=== PATIENT | female | born 1955 | race American Indian/Alaskan Native ===

== ENCOUNTER 2016-11-06 09:00 | Inpatient (IN) | payer OTHER ==
[2016-11-06] MEDS ORDERED: KETOROLAC TROMETHAMINE 30 MG/1 ML VIAL IVPUSH ONE (09:29)
[2016-11-06] MEDS ORDERED: SODIUM CHLORIDE 1,000 ML IV STA ×2 (09:29→12:19)
[2016-11-06] MEDS ORDERED: morphine CARPU-JECT 4 MG/1 ML DISP.SYRIN IVPUSH ONE (09:29)
[2016-11-06] MEDS ORDERED: morphine CARPU-JECT 4 MG/1 ML DISP.SYRIN ONE (09:45)
[2016-11-06] MEDS ORDERED: KETOROLAC TROMETHAMINE 30 MG/1 ML VIAL ONE (09:46)
[2016-11-06 09:50] LABS: BASOPHIL 0.6 % (0-2.0); EOSINOPHIL 2.9 % (0-4.5); MCHC 32.8 g/dl (32.0-36.0); MEAN CELL VOLUME 85.4 fl (80-96); MEAN PLT VOLUME 7.1 fl (7.5-11.1); NEUTROPHILS 67.7 % (42.8-82.8); PLATELET COUNT 191 K/MM3 (134-434); RDW 15.8 % (11.6-15.6); WHITE BLOOD COUNT 5.6 K/mm3 (4.0-10.0)
[2016-11-06] MEDS ORDERED: ONDANSETRON 4 MG/2 ML VIAL ONE (09:54)
--- NOTE | 2016-11-06 10:09 | PDOC ---
History of Present Illness - General History Source: Patient, Old Records, Primary Care Provider Exam Limitations: No Limitations - History of Present Illness Initial Comments: 11/06/16 10:11 The patient is a 61 year old female with past medical history of HIV, with CD4 count 664, viral load <20 with 100% adherence to Atripla who presents to the ED with the complaints of three days of bilateral flank pain, left greater than right. She rates the pain 10/10 in severity and radiates toward her umbilicus. She reports nausea but denies vomiting. She denies any modifying factors. The patient had an Abdomen/CT scan on 10/05/16 which showed a staghorn calculus in the upper pole of right kidney, 2.2 x 1.5 x 2.3 cm in size as well as several calculi in the left ureter, with the largest of 7 mm. The patient was scheduled for a lithotripsy on 11/08/16 however, she was unable to bare the pain until then. The patient denies any urinary symptoms. The patient denies any fever, chills, diarrhea, cough, shortness of breath, chest pain. Surgical Hx: Tonsillectomy, Right lithotripsy (2012) Social Hx: Denies alcohol, tobacco, drug use. Allergies: Penicillin, sulfamethoxazole PCP: Zuleyka Casey Urologist: Jarrett Busby <Afsaneh Matt - Last Filed: 11/06/16 11:39> - General History Source: Patient Exam Limitations: No Limitations <Julianne Teixeira - Last Filed: 11/06/16 11:59> - General Chief Complaint: Pain, Acute Stated Complaint: LT SIDE PAIN Time Seen by Provider: 11/06/16 09:20 Past History <Afsaneh Matt - Last Filed: 11/06/16 11:39> - Past Medical History Anemia: No Asthma: No Cancer: No Cardiac Disorders: No CVA: Yes (x 2 - 07/16/2004, 08/30/2004) COPD: No CHF: No Dementia: No Diabetes: No (BORDERLINE) GI Disorders: No Disorders: No HTN: No Hypercholesterolemia: No Kidney Stones: Yes Liver Disease: No Seizures: No Thyroid Disease: No Other medical history: PHLEBITIS - Surgical History Abdominal Surgery: No Appendectomy: No Cardiac Surgery: No Cholecystectomy: No Lung Surgery: No Neurologic Surgery: No Orthopedic Surgery: Yes (WRIST SX - RIGHT) - Psycho/Social/Smoking Cessation Hx Anxiety: No Suicidal Ideation: No Smoking History: Never smoked Have you smoked in the past 12 months: No Number of Cigarettes Smoked Daily: 0 If you are a former smoker, when did you quit?: 1993 Cigars Per Day: 0 Hx Alcohol Use: No Drug/Substance Use Hx: No Substance Use Type: None Hx Substance Use Treatment: No <Julianne Teixeira - Last Filed: 11/06/16 11:59> - Past Medical History Allergies/Adverse Reactions: Allergies Allergy/AdvReac Type Severity Reaction Status Date / Time Penicillins Allergy Severe tongue Verified 11/06/16 09:04 swelling, sob sulfamethoxazole Allergy Intermediate rash, Verified 11/06/16 09:04 [From Bactrim] itching trimethoprim [From Bactrim] Allergy Intermediate rash, Verified 11/06/16 09:04 itching Home Medications: Ambulatory Orders Cyclobenzaprine HCl [Flexeril -] 10 mg PO HS PRN #30 tablet 04/15/16 Aspirin [Aspirin EC] 81 mg PO DAILY #30 tablet. 09/02/16 Cyclobenzaprine HCl [Flexeril 10 mg] 10 mg PO HS PRN #30 tablet 09/02/16 Efavirenz/Emtricitab/Tenofovir [Atripla Tablet -] 1 tab PO DAILY #30 tab Gabapentin [Neurontin] 600 mg PO BID #60 tablet 09/02/16 Guaifenesin Dm [Robitussin Dm -] 10 ml PO Q8H PRN #1 bottle 09/02/16 Multivitamins [Multivit ([facility] Formul[facility])] 1 tab PO DAILY #30 tab 09/02/16 Hydrochlorothiazide [Hctz -] 12.5 mg PO DAILY #30 cap 09/30/16 Ranitidine HCl [Zantac] 150 mg PO DAILY #30 tablet 10/06/16 Review of Systems - Review of Systems Able to Perform ROS?: Yes Comments:: 11/06/16 10:12 GENERAL/CONSTITUTIONAL: No fever or chills. No weakness. HEAD, EYES, EARS, NOSE AND THROAT: No change in vision. No ear pain or discharge. No sore throat. CARDIOVASCULAR: No chest pain or shortness of breath. RESPIRATORY: No cough, wheezing, or hemoptysis. GASTROINTESTINAL: Present: nausea No vomiting, diarrhea or constipation. GENITOURINARY: Present: bilateral flank pain No dysuria, frequency, or change in urination. MUSCULOSKELETAL: No joint or muscle swelling or pain. No neck or back pain. SKIN: No rash NEUROLOGIC: No headache, vertigo, loss of consciousness, or change in strength/ sensation. ENDOCRINE: No increased thirst. No abnormal weight change. HEMATOLOGIC/LYMPHATIC: No anemia, easy bleeding, or history of blood clots. ALLERGIC/IMMUNOLOGIC: No hives or skin allergy. All Other Systems: Reviewed and Negative <VernellAfsaneh - Last Filed: 11/06/16 11:39> *Physical Exam - Vital Signs Last Vital Signs Temp Pulse Resp BP Pulse Ox 97.8 F 96 H 20 157/92 98 11/06/16 09:01 11/06/16 09:01 11/06/16 09:01 11/06/16 09:01 11/06/16 09:01 - Physical Exam Comments: 11/06/16 10:13 GENERAL: Awake, alert, and fully oriented, in no acute distress HEAD: No signs of trauma EYES: PERRLA, EOMI, sclera anicteric, conjunctiva clear ENT: Auricles normal inspection, hearing grossly normal, nares patent, oropharynx clear without exudates. Moist mucosa NECK: Normal ROM, supple, no lymphadenopathy, JVD, or masses LUNGS: Breath sounds equal, clear to auscultation bilaterally. No wheezes, and no crackles HEART: Regular rate and rhythm, normal S1 and S2, no murmurs, rubs or gallops ABDOMEN: Left CVA tenderness, Soft, normoactive bowel sounds. No guarding, no rebound. No masses EXTREMITIES: Normal range of motion, no edema. No clubbing or cyanosis. No cords, erythema, or tenderness NEUROLOGICAL: Cranial nerves II through XII grossly intact. Normal speech, normal gait SKIN: Warm, Dry, normal turgor, no rashes or lesions noted. <Afsaneh Matt - Last Filed: 11/06/16 11:39> - Vital Signs Last Vital Signs Temp Pulse Resp BP Pulse Ox 97.8 F 96 H 20 157/92 98 11/06/16 09:01 11/06/16 09:01 11/06/16 09:01 11/06/16 09:01 11/06/16 09:01 <Julianne Teixeira - Last Filed: 11/06/16 11:59> ED Treatment Course - LABORATORY CBC & Chemistry Diagram: 11/06/16 09:40 11/06/16 09:40 - ADDITIONAL ORDERS Additional order review: 11/06/16 09:40 RBC 4.98 MCV 85.4 MCHC 32.8 RDW 15.8 H MPV 7.1 L Neutrophils % 67.7 Lymphocytes % 21.6 D Monocytes % 7.2 Eosinophils % 2.9 Basophils % 0.6 - Medications Given in the ED: ED Medications Discontinued Medications Generic Name Dose Route Start Last Admin Trade Name Freq PRN Reason Stop Dose Admin Ketorolac Tromethamine 30 mg 11/06/16 09:29 11/06/16 09:40 Toradol Injection - IVPUSH 11/06/16 09:30 30 mg ONCE ONE Administration Morphine Sulfate 4 mg 11/06/16 09:29 11/06/16 09:40 Morphine Injection - IVPUSH 11/06/16 09:30 4 mg ONCE ONE Administration <Afsaneh Matt - Last Filed: 11/06/16 11:39> - LABORATORY CBC & Chemistry Diagram: 11/06/16 09:40 11/06/16 09:40 - ADDITIONAL ORDERS Additional order review: 11/06/16 09:40 RBC 4.98 MCV 85.4 MCHC 32.8 RDW 15.8 H MPV 7.1 L Neutrophils % 67.7 Lymphocytes % 21.6 D Monocytes % 7.2 Eosinophils % 2.9 Basophils % 0.6 - Medications Given in the ED: ED Medications Discontinued Medications Generic Name Dose Route Start Last Admin Trade Name Freq PRN Reason Stop Dose Admin Ketorolac Tromethamine 30 mg 11/06/16 09:29 11/06/16 09:40 Toradol Injection - IVPUSH 11/06/16 09:30 30 mg ONCE ONE Administration Morphine Sulfate 4 mg 11/06/16 09:29 11/06/16 09:40 Morphine Injection - IVPUSH 11/06/16 09:30 4 mg ONCE ONE Administration <Julianne Teixeira - Last Filed: 11/06/16 11:59> Medical Decision Making - Medical Decision Making 11/06/16 10:14 Phone call placed to Dr. Busby at 09:30 at . Call returned within 10 minutes. Case was discussed. <Afsaneh Matt - Last Filed: 11/06/16 11:39> - Medical Decision Making 11/06/16 10:07 A portion of this note was documented by scribe services under my direction. I have reviewed the details of the note, within reason, and agree with the documentation with the following case summary and management plan written by me. Nursing documentation reviewed and incorporated into medical decision making 11/06/16 11:54 Laboratory Tests 11/06/16 11/06/16 09:40 09:40 WBC 5.6 Hgb 14.0 Hct 42.6 Plt Count 191 Neutrophils % 67.7 Lymphocytes % 21.6 D BUN 15 Creatinine 1.1 H Case reviewed with Dr Quigley Pt is on schedule for TuesdayNovember 08 Pt needs medical clearance Case reviewed with Dr. Gordon <Julianne Teixeira - Last Filed: 11/06/16 11:59> *DC/Admit/Observation/Transfer - Attestations Scribe Attestion: 11/06/16 10:14 Documentation prepared by Afsaneh Matt, acting as chief medical officer for Julianne Teixeira MD. <Afsaneh Matt - Last Filed: 11/06/16 11:39> - Discharge Dispostion Admit: Yes <Julianne Teixeira - Last Filed: 11/06/16 11:59> Diagnosis at time of Disposition: Renal calculi - Discharge Dispostion Condition at time of disposition: Stable - Referrals Referrals: Zuleyka Casey MD [Primary Care Provider] -
[2016-11-06 10:12] LABS: ALBUMIN 3.7 g/dl (3.4-5.0); ALK PHOS 163 U/L (45-117); ANION GAP 8 (8-16); BILIRUBIN,TOTAL 0.3 mg/dL (0.2-1.0); CALCIUM 8.7 mg/dL (8.5-10.1); CO2 24 mmol/L (21-32); CREATININE 1.1 mg/dL (0.55-1.02); GLUCOSE,RANDOM 150 mg/dL (74-106); SGOT/AST 26 U/L (15-37); SGPT/ALT 32 U/L (12-78); TOT PROT 7.3 g/dl (6.4-8.2)
[2016-11-06 10:31] LABS: INR 1.01 (0.82-1.09); PROTHROMBIN TIME (PATIENT) 11.1 SEC (9.98-11.88)
[2016-11-06] MEDS ORDERED: ONDANSETRON 4 MG/2 ML VIAL IVPUSH ONE (10:48)
--- NOTE | 2016-11-06 11:19 | HP ---
CHIEF COMPLAINT: left flank and lower abdominal pain PCP: dr. ramos HISTORY OF PRESENT ILLNESS: 61 yr old woman with a hx of HIV, CVA, pre-diabetes, hx of nephrolithiasis and staghorn calculi presents with intractable left flank pain since night. starts in the left flank and radiates to her lower abdomen and umbilicus , constant 6/10 with intermittent worsening to 10/10. She tried tylenol at home which did not help the pain. a/w diarrhea (3 episodes of loose watery nonbloody bm's yesterday). denies fevers, headache, chest pain, palpitations, shortness of breath, hematuria, vomiting ER course was notable for: (1) IVF (2) pain control (3) u/a Recent Travel:none PAST MEDICAL HISTORY: HIV - compliant with medications, follows routinely with dr. Ramos, undetectable viral load for 20yrs CD4 count [address] [facility] documentation 09/2016 CVA x2 in 2004July 16, and August 30 - with no residual deficits PAST SURGICAL HISTORY: Social History: Smoking: started ge 12 stopped in 1991, smoked intermittently during these years Alcohol: social drinking in the past, quit completely about 10 yrs ago Drugs: never Family History: both sides of family with cancers, "of all types, including colon cancer" father diagnosed with pancreatic ca at age 60 - survived 10yrs. Allergies Penicillins Allergy (Severe, Verified 11/06/16 09:04) tongue swelling, sob sulfamethoxazole [From Bactrim] Allergy (Intermediate, Verified 11/06/16 09:04) rash, itching trimethoprim [From Bactrim] Allergy (Intermediate, Verified 11/06/16 09:04) rash, itching HOME MEDICATIONS: Home Medications Medication Instructions Recorded Cyclobenzaprine HCl [Flexeril -] 10 mg PO HS PRN #30 tablet 04/15/16 Aspirin [Aspirin EC] 81 mg PO DAILY #30 tablet. 09/02/16 Cyclobenzaprine HCl [Flexeril 10 10 mg PO HS PRN #30 tablet 09/02/16 mg] Efavirenz/Emtricitab/Tenofovir 1 tab PO DAILY #30 tab 09/02/16 [Atripla Tablet -] Gabapentin [Neurontin] 600 mg PO BID #60 tablet 09/02/16 Guaifenesin Dm [Robitussin Dm -] 10 ml PO Q8H PRN #1 bottle 09/02/16 Multivitamins [Multivit ([facility] 1 tab PO DAILY #30 tab 09/02/16 Formulary)] Hydrochlorothiazide [Hctz -] 12.5 mg PO DAILY #30 cap 09/30/16 Ranitidine HCl [Zantac] 150 mg PO DAILY #30 tablet 10/06/16 REVIEW OF SYSTEMS CONSTITUTIONAL: Absent: fever, chills, diaphoresis, generalized weakness, malaise, loss of appetite, weight change HEENT: Absent: rhinorrhea, nasal congestion, throat pain, throat swelling, difficulty swallowing, mouth swelling, ear pain, eye pain, visual changes CARDIOVASCULAR: Present: lower extremity edema Absent: chest pain, syncope, palpitations, irregular heart rate, lightheadedness , RESPIRATORY: Absent: cough, shortness of breath, dyspnea with exertion, orthopnea, wheezing, stridor, hemoptysis GASTROINTESTINAL: Present: abdominal pain, diarrhea Absent: abdominal distension, nausea, vomiting,constipation, melena, hematochezia GENITOURINARY: Present: feels like she is retaining occasionally. Absent: dysuria, frequency, urgency, hesitancy, hematuria, flank pain, genital pain MUSCULOSKELETAL: Absent: myalgia, arthralgia, joint swelling, back pain, neck pain SKIN: Absent: rash, itching, pallor HEMATOLOGIC/IMMUNOLOGIC: Absent: easy bleeding, easy bruising, lymphadenopathy, frequent infections ENDOCRINE: Absent: unexplained weight gain, unexplained weight loss, heat intolerance, cold intolerance NEUROLOGIC: Absent: headache, focal weakness or paresthesias, dizziness, unsteady gait, seizure, mental status changes, bladder or bowel incontinence PHYSICAL EXAMINATION Vital Signs - 24 hr 11/06/16 09:01 Temperature 97.8 F Pulse Rate 96 H Respiratory 20 Rate Blood Pressure 157/92 O2 Sat by Pulse 98 Oximetry (%) GENERAL: Awake, alert, and fully oriented, in no acute distress. HEAD: Normal with no signs of trauma. EYES: Pupils equal, round and reactive to light, extraocular movements intact, sclera anicteric, conjunctiva clear. No lid lag. EARS, NOSE, THROAT: normal TM's, nares patent, oropharynx clear without exudates. Moist mucous membranes. eduntulism NECK: Normal range of motion, supple without lymphadenopathy, without masses, thick neck LUNGS: Breath sounds equal, clear to auscultation bilaterally. No wheezes, and no crackles. No accessory muscle use. HEART: Regular rate and rhythm, normal S1 and S2 without murmur, rub or gallop. ABDOMEN: Soft, tender in left flank, left lower abdomen, obturator and psoas's negative, not distended, normoactive bowel sounds, no guarding, no rebound, MUSCULOSKELETAL: No bony deformities or tenderness. CVA tenderness Left>right UPPER EXTREMITIES: 2+ radial pulses, warm, well-perfused. No cyanosis. No clubbing. No peripheral edema. ttp in b/l shoulders at joint (chronic) without edema/erythema/skin intact. full rom at shoulder joint, flexion 4/5 b/l shoulder , 4/5 biceps and triceps. 3/5 in left hip extension, knee flexion limited by pain, 4/5 right hip extension, knee extension/flexion 4/5, dorsi/plantar flexion 5/5 bl sensation intact in arms/hands, legs and feet. LOWER EXTREMITIES: 2+ dorsalis pulses, warm, well-perfused. No calf tenderness. 1+ pitting edema left lower extremity from below knee to foot, trace edema in right lower leg below knee to ankle. NEUROLOGICAL: Cranial nerves II-XII intact. Normal speech. facial symmetry, PSYCHIATRIC: Cooperative. Good eye contact. Appropriate mood and affect. Laboratory Results - last 24 hr 11/06/16 11/06/16 11/06/16 09:40 09:40 09:40 WBC 5.6 RBC 4.98 Hgb 14.0 Hct 42.6 MCV 85.4 MCHC 32.8 RDW 15.8 H Plt Count 191 MPV 7.1 L Neutrophils % 67.7 Lymphocytes % 21.6 D Monocytes % 7.2 Eosinophils % 2.9 Basophils % 0.6 INR 1.01 Sodium 141 Potassium 4.0 Chloride 109 H Carbon Dioxide 24 Anion Gap 8 BUN 15 Creatinine 1.1 H Creat Clearance w eGFR 50.67 Random Glucose 150 H D Calcium 8.7 Total Bilirubin 0.3 D AST 26 ALT 32 Alkaline Phosphatase 163 H Total Protein 7.3 Albumin 3.7 Blood Type Antibody Screen 11/06/16 09:40 WBC RBC Hgb Hct MCV MCHC RDW Plt Count MPV Neutrophils % Lymphocytes % Monocytes % Eosinophils % Basophils % INR Sodium Potassium Chloride Carbon Dioxide Anion Gap BUN Creatinine Creat Clearance w eGFR Random Glucose Calcium Total Bilirubin AST ALT Alkaline Phosphatase Total Protein Albumin Blood Type O POSITIVE Antibody Screen Negative ASSESSMENT/PLAN: 61 yr old woman with hx of HIV, CVA and nephrolithasis admitted for intractable pain due to nephrolithiasis. - Medical optimization -- patient has a hx of CVA without current cardiac complaints and stable TWI inversions/left axis deviation/QTc pronlongation on EKG, she has Mets>4. She is at moderate risk for an elective low risk lithotripsy procedure. she does not require further cardiac work-up at this time. # nephrolithiasis - IVF NS @ 75ml/hr for 12 hours (limit on IVF due to LE edema) - flomax daily to promote passage of stones - no indication for abx as pt has not c.o of UTI, no bacteria in u/a - dr. Snowden is aware patient has been admitted, she has is on the schedule on the 3rd for lithotripsy - pain control with tylenol 650mg po q6hr, escalate to oxycodone if not relieved #HIV - continue Atripla daily #chronic pain in b/l lower legs - gabapentin 600mg po bid - flexiril 10mg po daily prn #ELISSA - stable for past 3 visits, though elevated from pt's baseline - likely due to obstructive uropathy from renal calculi, expect improvement with stone removal #hx of CVA - continue ASA 81mg daily Prediabetes - diet control: diabetic diet #DVT: heparin tid sq 5000units #activity as tolerated Visit type - Emergency Visit Emergency Visit: Yes ED Registration Date: 11/06/16 Care time: The patient presented to the Emergency Department on the above date and was hospitalized for further evaluation of their emergent condition. - New Patient This patient is new to me today: Yes Date on this admission: 11/06/16 - Critical Care Critical Care patient: No
[2016-11-06 11:53] LABS: URINE APPEARANCE CLEAR; URINE BILIRUBIN NEGATIVE (NEGATIVE); URINE COLOR YELLOW; URINE GLUCOSE (UA) NEGATIVE (NEGATIVE); URINE KETONE NEGATIVE (NEGATIVE); URINE NITRITE NEGATIVE (NEGATIVE); URINE UROBILINOGEN NEGATIVE E.U./dl (0.2-1.0)
[2016-11-06 11:55] LABS: URINE BLOOD 2+ (NEGATIVE); URINE LEUK ESTERASE TRACE (NEGATIVE); URINE PROTEIN 1+ (NEGATIVE)
[2016-11-06 11:58] LABS: URINE HYALINE CAST 1 /lpf; URINE RBC 28 /hpf (0-3); URINE WBC 7 /hpf (3-5)
[2016-11-06] MEDS ORDERED: SODIUM CHLORIDE 1,000 ML IV SCH ×2 (14:30→15:12)
--- NOTE | 2016-11-06 14:49 | EKG ---
Test Reason : Blood Pressure : / mmHG Vent. Rate : 077 BPM Atrial Rate : 077 BPM P-R Int : 142 ms QRS Dur : 072 ms QT Int : 440 ms P-R-T Axes : 032 -29 -08 degrees QTc Int : 497 ms NORMAL SINUS RHYTHM PROLONGED QT ABNORMAL ECG WHEN COMPARED WITH ECG OF 23-MAR-2006 11:46, INVERTED T WAVES HAVE REPLACED NONSPECIFIC T WAVE ABNORMALITY IN INFERIOR LEADS Confirmed by CRISTOFER ACOSTA, JOSE DE JESUS ([id number]) on 11/06/2016 2:49:05 PM Referred By: Confirmed By:JOSE DE JESUS CLEVELAND MD
--- NOTE | 2016-11-06 14:50 | PN ---
Teaching Attending Note Name of Resident: Gutierrez Delarosa ATTENDING PHYSICIAN STATEMENT I saw and evaluated the patient. I reviewed the resident's note and discussed the case with the resident. I agree with the resident's findings and plan as documented. SUBJECTIVE: CC: L flank pain . HPI: 61 y/o lady with h/o HIV, nephrolithiasis , and CVA in 2004 who presented with L flank pain x 3 days she has known nephrolithiasis ( staghorn on R and obstructive L lower uretal calculus in L , seen o n CT from 10/05). she was scheduled fro lithotripsy on Tuesday but never got medical clearance . now has pain , no dysuria or fever . OBJECTIVE: NAD, MMM, no teeth , CV: RRR, no MRG, no JVD Lungs : CATB ext : 1+ pitting edema on LE . ABd : soft, TTP in LLQ and RLQ , no rebound tenderness or guarding . L CVA tenderness neuro : no facial droop, EOMI, round equal pupils . tongue at mid line . strength 5/5 in upper and lower ext proximally and distally EKG : NSR, L axis , TWI in II and AVF, seen before with long QTC ASSESSMENT AND PLAN: 61 y/o lady with h/o HIV, nephrolithiasis , and CVA in 2004 who presented with L flank pain x 3 days 1- Nephrolithiasis : with L Hydronephrosis and Hydroureter , known from 10/05. pain has increased . no signs fo UTI , clinically or on UA - gentle IVF till AM only - start flomax - consult Uro for procedure on Tuesday - Pre-Op risk stratification : this is an elective low risk procedure. the patient herself has no CP or SOB , or any signs of acute CHF or ACS, or arrhythmias. she is independent in her ADLS and IADLS , she is functional with METS of > 4 . She has h/o CVA though. all that puts her at mod risk fro cardiac complication withthis procedure . there is no indication for further cardiac w/ u - no need for abx 2- ELISSA : cr stable 1.1 . likely due to obstructive uropathy. give IVF carefully till am only then stop 3- HIV: cont meds 4- h/o Stroke : cont ASA HLOC
[2016-11-06] MEDS: ACETAMINOPHEN 325 MG TABLET (FP) PO PRN ×2 (15:27→23:08)
[2016-11-06 17:02] VITALS: BMI 43.3
[2016-11-06] MEDS: TAMSULOSIN HCL 0.4 MG CAP.ER.24H (FP) PO SCH (18:12)
[2016-11-06] MEDS: HEPARIN NA (PORCINE) 5,000 UNITS/ML 1ML VIAL SQ SCH (22:16)
[2016-11-06] MEDS: GABAPENTIN 300 MG CAPSULE (FP) PO SCH (22:16)
[2016-11-07] MEDS ORDERED: HYDROmorphone HCL CARPU-JECT 1 MG/1 ML DISP.SYRIN IVPUSH ONE (00:38)
[2016-11-07] MEDS ORDERED: morphine CARPU-JECT 2 MG/1 ML DISP.SYRIN IVPUSH ONE ×3 (05:27→23:09)
[2016-11-07] MEDS: HEPARIN NA (PORCINE) 5,000 UNITS/ML 1ML VIAL SQ SCH ×3 (06:07→21:29)
[2016-11-07] MEDS ORDERED: KETOROLAC TROMETHAMINE 30 MG/1 ML VIAL IVPUSH ONE (06:49)
[2016-11-07 07:36] LABS: BASOPHIL 0.8 % (0-2.0); EOSINOPHIL 3.9 % (0-4.5); MCH 28.2 pg (25.7-33.7); MEAN CELL VOLUME 85.4 fl (80-96); MEAN PLT VOLUME 7.4 fl (7.5-11.1); NEUTROPHILS 56.8 % (42.8-82.8); PLATELET COUNT 186 K/MM3 (134-434); RDW 15.6 % (11.6-15.6)
--- NOTE | 2016-11-07 08:16 | PN ---
Progress Note (short form) - Note Progress Note: Subjective: no fever or chills, still has pain in L flank . no N/V Objective: Vital Signs: Last Vital Signs Temp Pulse Resp BP Pulse Ox 97.8 F 89 20 139/81 96 11/07/16 06:00 11/07/16 06:00 11/07/16 06:00 11/07/16 06:00 11/07/16 03:00 Laboratory Results - last 24 hr 11/06/16 11/06/16 11/06/16 09:40 09:40 09:40 WBC 5.6 RBC 4.98 Hgb 14.0 Hct 42.6 MCV 85.4 MCHC 32.8 RDW 15.8 H Plt Count 191 MPV 7.1 L Neutrophils % 67.7 Lymphocytes % 21.6 D Monocytes % 7.2 Eosinophils % 2.9 Basophils % 0.6 INR 1.01 Sodium 141 Potassium 4.0 Chloride 109 H Carbon Dioxide 24 Anion Gap 8 BUN 15 Creatinine 1.1 H Creat Clearance w eGFR 50.67 Random Glucose 150 H D Calcium 8.7 Total Bilirubin 0.3 D AST 26 ALT 32 Alkaline Phosphatase 163 H Total Protein 7.3 Albumin 3.7 Urine Color Urine Appearance Urine pH Ur Specific [place] Urine Protein Urine Glucose (UA) Urine Ketones Urine Blood Urine Nitrite Urine Bilirubin Urine Urobilinogen Ur Leukocyte Esterase Urine RBC Urine WBC Ur Epithelial Cells Hyaline Casts Blood Type Antibody Screen 11/06/16 11/06/16 11/07/16 09:40 11:30 06:00 WBC 4.0 RBC 4.36 Hgb 12.3 D Hct 37.2 MCV 85.4 MCHC 33.0 RDW 15.6 Plt Count 186 MPV 7.4 L Neutrophils % 56.8 Lymphocytes % 29.9 D Monocytes % 8.6 Eosinophils % 3.9 Basophils % 0.8 INR Sodium Potassium Chloride Carbon Dioxide Anion Gap BUN Creatinine Creat Clearance w eGFR Random Glucose Calcium Total Bilirubin AST ALT Alkaline Phosphatase Total Protein Albumin Urine Color Yellow Urine Appearance Clear Urine pH 5.0 Ur Specific [place] 1.025 Urine Protein 1+ H Urine Glucose (UA) Negative Urine Ketones Negative Urine Blood 2+ H Urine Nitrite Negative Urine Bilirubin Negative Urine Urobilinogen Negative Ur Leukocyte Esterase Trace H Urine RBC 28 Urine WBC 7 Ur Epithelial Cells Rare Hyaline Casts 1 Blood Type O POSITIVE Antibody Screen Negative Physical Exam: NAD, MMM, no teeth. CV: RRR, no MRG, no JVD Lungs : CATB ext : 1+ pitting edema on LE . ABd : soft, TTP in LLQ and RLQ , no rebound tenderness or guarding . L CVA tenderness ASSESSMENT AND PLAN: 61 y/o lady with h/o HIV, nephrolithiasis , and CVA in 2004 who presented with L flank pain x 3 days 1- Nephrolithiasis : with L Hydronephrosis and Hydroureter , known from 10/05. pain has increased . no signs of UTI , clinically or on UA - cont hydration today - flomax - Uro for procedure on Tuesday - Pre-Op risk stratification : this is an elective low risk procedure. the patient herself has no CP or SOB , or any signs of acute CHF or ACS, or arrhythmias. she is independent in her ADLS and IADLS , she is functional with METS of > 4 . She has h/o CVA though. all that puts her at mod risk fro cardiac complication with this procedure . there is no indication for further cardiac w /u 2- ELISSA : cr stable 1.1 . likely due to obstructive uropathy. IVF 3- HIV: cont meds 4- h/o Stroke : cont ASA HLOC Visit type - Emergency Visit Emergency Visit: Yes ED Registration Date: 11/06/16 Care time: The patient presented to the Emergency Department on the above date and was hospitalized for further evaluation of their emergent condition. - New Patient This patient is new to me today: No - Critical Care Critical Care patient: No
[2016-11-07 08:25] LABS: ANION GAP 7 (8-16); CALCIUM 8.2 mg/dL (8.5-10.1); CO2 26 mmol/L (21-32); CREATININE 1.2 mg/dL (0.55-1.02); GLUCOSE,RANDOM 138 mg/dL (74-106)
[2016-11-07] MEDS: GABAPENTIN 300 MG CAPSULE (FP) PO SCH ×3 (08:44→21:29)
[2016-11-07] MEDS: CYCLOBENZAPRINE HCL 10 MG TABLET (FP) PO PRN ×2 (08:44→18:39)
[2016-11-07] MEDS: ASPIRIN COATED 81 MG TABLET.EC PO SCH ×2 (08:45→15:55)
[2016-11-07] MEDS: TAMSULOSIN HCL 0.4 MG CAP.ER.24H (FP) PO SCH (08:45)
[2016-11-07] MEDS: MULTIVITAMINS (DAILY MVI) TABLET (FP) PO SCH ×2 (08:45→15:56)
--- NOTE | 2016-11-07 09:25 | PN ---
Progress Note (short form) - Note Progress Note: patient previously scheduled as outpatient for laser lithotripsy for 08 November 2016. will plan for procedure if medically cleared.
[2016-11-07] MEDS ORDERED: EFAVIRENZ 600 MG TABLET PO SCH ×3 (10:00→20:00)
[2016-11-07] MEDS ORDERED: PATIENT'S OWN MEDICATION (NON-FORMULARY) (Efavirenz/Emtricitab/Tenofovir 1 TAB) PO SCH (10:00)
[2016-11-07] MEDS ORDERED: EMTRICITABINE 200MG/TENOFOVIR 300MG PO SCH ×3 (10:00→20:00)
[2016-11-07] MEDS ORDERED: ENOXAPARIN NA (PORCINE) 40 MG/0.4 ML DISP.SYRIN SQ SCH (10:00)
[2016-11-07] MEDS: SODIUM CHLORIDE 1,000 ML IV SCH (17:22)
[2016-11-07] MEDS ORDERED: PT OWN MED DRAWER 7, Y5N ONE (20:22)
[2016-11-07] MEDS: ACETAMINOPHEN 325 MG TABLET (FP) PO PRN (21:08)
[2016-11-08] MEDS ORDERED: ceFAZolin SODIUM 1 GM VIAL IVPB ONE
[2016-11-08] MEDS: HEPARIN NA (PORCINE) 5,000 UNITS/ML 1ML VIAL SQ SCH ×3 (06:08→21:04)
[2016-11-08] MEDS ORDERED: morphine CARPU-JECT 2 MG/1 ML DISP.SYRIN IVPUSH ONE (06:09)
[2016-11-08 08:27] LABS: ANION GAP 5 (8-16); CALCIUM 8.3 mg/dL (8.5-10.1); CO2 28 mmol/L (21-32); CREATININE 1.3 mg/dL (0.55-1.02); GLUCOSE,RANDOM 111 mg/dL (74-106)
[2016-11-08] MEDS: MULTIVITAMINS (DAILY MVI) TABLET (FP) PO SCH (12:18)
[2016-11-08] MEDS: GABAPENTIN 300 MG CAPSULE (FP) PO SCH ×2 (12:18→21:04)
[2016-11-08] MEDS: ASPIRIN COATED 81 MG TABLET.EC PO SCH (12:18)
[2016-11-08] MEDS: TAMSULOSIN HCL 0.4 MG CAP.ER.24H (FP) PO SCH (12:18)
[2016-11-08] MEDS ORDERED: LEVOFLOXACIN 500 MG PREMIX BAG IVPB ONE (15:58)
[2016-11-08] MEDS ORDERED: IOHEXOL 300 MG/ML INFUS..BTL IV ONE (16:00)
[2016-11-08] MEDS ORDERED: PROMETHAZINE HCL 25 MG/1 ML VIAL IVPUSH PRN (17:04)
[2016-11-08] MEDS ORDERED: ONDANSETRON 4 MG/2 ML VIAL IVPUSH PRN (17:04)
--- NOTE | 2016-11-08 17:10 | CON.GU ---
Consult Consult Specialty:: urology Referred by:: medicine Reason for Consultation:: bilateral stone disease with left hydro - History of Present Illness Chief Complaint: left renal obstruction History of Present Illness: 61 year old female with obstructing left ureteral stones and hydro, and right renal calculi on CT scan - History Source History Provided By: Patient, Medical Record Limitations to Obtaining History: No Limitations - Past Medical History Renal/: Yes: Renal Calculi ...: No - Alcohol/Substance Use Hx Alcohol Use: No - Smoking History Smoking history: Never smoked Have you smoked in the past 12 months: No Aproximately how many cigarettes per day: 0 If you are a former smoker, when did you quit?: 1993 Home Medications - Allergies Allergies/Adverse Reactions: Allergies Allergy/AdvReac Type Severity Reaction Status Date / Time Penicillins Allergy Severe tongue Verified 11/06/16 09:04 swelling, sob sulfamethoxazole Allergy Intermediate rash, Verified 11/06/16 09:04 [From Bactrim] itching trimethoprim [From Bactrim] Allergy Intermediate rash, Verified 11/06/16 09:04 itching - Home Medications Home Medications: Ambulatory Orders Aspirin [Aspirin EC] 81 mg PO DAILY #30 tablet. 09/02/16 Cyclobenzaprine HCl [Flexeril 10 mg] 10 mg PO HS PRN #30 tablet 09/02/16 Efavirenz/Emtricitab/Tenofovir [Atripla Tablet -] 1 tab PO DAILY #30 tab Gabapentin [Neurontin] 600 mg PO BID #60 tablet 09/02/16 Guaifenesin Dm [Robitussin Dm -] 10 ml PO Q8H PRN #1 bottle 09/02/16 Multivitamins [Multivit ([facility] Formulary)] 1 tab PO DAILY #30 tab 09/02/16 Hydrochlorothiazide [Hctz -] 12.5 mg PO DAILY #30 cap 09/30/16 Ranitidine HCl [Zantac] 150 mg PO DAILY #30 tablet 10/06/16 Family Disease History - Family Disease History Family Disease History: Diabetes: Mother (ckd on dialysis), CA: Father (colon cancer), Other: Mother Review of Systems - Review of Systems Constitutional: denies: Chills, Fever Genitourinary: reports: Flank Pain Physical Exam- Vital Signs: Vital Signs Temperature 98.3 F 11/08/16 13:59 Pulse Rate 83 11/08/16 13:59 Respiratory Rate 20 11/08/16 13:59 Blood Pressure 127/79 11/08/16 10:00 O2 Sat by Pulse Oximetry (%) 96 11/08/16 09:00 Renal/: Yes: CVA Tenderness - Left. No: CVA Tenderness - Right, Wiley Present , Hematuria Labs: CBC, BMP 11/07/16 06:00 11/08/16 06:30 Imaging - Results Cat Scan: Report Reviewed, Image Reviewed Problem List - Problems (1) Renal calculi Assessment/Plan: bilatateral stones. for ureteroscopy Code(s): N20.0 - CALCULUS OF KIDNEY
[2016-11-08] MEDS ORDERED: LACTATED RINGERS SOLUTION 1,000 ML IV SCH (17:15)
[2016-11-08] MEDS ORDERED: ACETAMINOPHEN 325 MG TABLET (FP) PO PRN (17:27)
[2016-11-08] MEDS ORDERED: CYCLOBENZAPRINE HCL 10 MG TABLET (FP) PO PRN (17:27)
[2016-11-08] MEDS: LACTATED RINGERS SOLUTION 1,000 ML IV SCH ×2 (18:42→21:14)
--- NOTE | 2016-11-08 19:05 | PN ---
Teaching Attending Note Name of Resident: Anabel Monroy ATTENDING PHYSICIAN STATEMENT I saw and evaluated the patient. I reviewed the resident's note and discussed the case with the resident. I agree with the resident's findings and plan as documented. SUBJECTIVE: seen at 10 :30 am no fever or chills OBJECTIVE: NAD, MMM, no teeth. CV: RRR, no MRG, no JVD Lungs : CATB ext : 1+ pitting edema on LE . ABd : soft, TTP in LLQ and RLQ , no rebound tenderness or guarding . L CVA tenderness ASSESSMENT AND PLAN: 61 y/o lady with h/o HIV, nephrolithiasis , and CVA in 2004 who presented with L flank pain x 3 days 1- Nephrolithiasis : with L Hydronephrosis and Hydroureter -Lithotripsy today - cont hydration - flomax 2- ELISSA : cr stable 1.3. likely due to obstructive uropathy. IVF 3- HIV: cont meds 4- h/o Stroke : cont ASA possible dc tomorrow
--- NOTE | 2016-11-08 19:41 | PN ---
Physical Exam: SUBJECTIVE: Patient seen and examined at bedside. Patient complains of continued L CVA tenderness. Patient had requested morping 1mg IV 3 times last night. Otherwise patient does not complain of fever, chills, CP, SOB. Plan to go to Lithotripsy today. OBJECTIVE: Vital Signs Period Temp Pulse Resp BP Sys/Mcgee Pulse Ox Last 24 Hr 97.7 F-98.7 F 83-94 10-20 127-158/67-95 96-100 GENERAL: The patient is awake, alert, and fully oriented, in no acute distress. HEAD: Normal with no signs of trauma. EYES: PERRL, extraocular movements intact NECK: Trachea midline, full range of motion, supple. LUNGS: Breath sounds equal, clear to auscultation bilaterally, no wheezes, no crackles, no accessory muscle use. HEART: Regular rate and rhythm, S1, S2 without murmur, rub or gallop. ABDOMEN: Soft, nontender, nondistended, normoactive bowel sounds, no guarding, no rebound, L CVA tenderness present EXTREMITIES: 2+ pulses, warm, well-perfused, no edema. NEUROLOGICAL: Cranial nerves II through XII grossly intact. Normal speech, gait not observed. Patient has intact mental status, sensation equal bilaterally, muscles 5+, reflexes 2+ throughout Laboratory Results - last 24 hr 11/08/16 06:30 Sodium 142 Potassium 4.5 Chloride 109 H Carbon Dioxide 28 Anion Gap 5 L BUN 15 Creatinine 1.3 H Random Glucose 111 H Calcium 8.3 L Active Medications Generic Name Dose Route Start Last Admin Trade Name Freq PRN Reason Stop Dose Admin Acetaminophen 650 mg 11/08/16 17:27 Tylenol - PO Q6H PRN FEVER OR PAIN Aspirin 81 mg 11/09/16 10:00 Ecotrin - PO DAILY [facility] Cyclobenzaprine HCl 10 mg 11/08/16 17:27 Flexeril - PO HS PRN MUSCLE SPASMS Efavirenz 600 mg 11/08/16 20:00 Sustiva - PO DAILY@1999 [facility] Emtricitabine/Tenofovir 1 tab 11/08/16 20:00 Truvada PO DAILY@1999 [facility] Fentanyl 50 mcg 11/08/16 17:04 Sublimaze Injection - IVPUSH 11/11/16 17:05 [id number] PRN PAIN Gabapentin 600 mg 11/08/16 22:00 Neurontin - PO BID [facility] Heparin Sodium (Porcine) 5,000 unit 11/08/16 22:00 Heparin - SQ TID [facility] Lactated Ringer's 1,000 mls @ 125 mls/hr 11/08/16 17:15 11/08/16 18:42 Lactated Ringers Solution IV 125 mls/hr ASDIR [facility] Administration Morphine Sulfate 1 mg 11/08/16 17:06 Morphine Injection - IVPUSH Q4H PRN PAIN Multivitamins/Minerals/Vitamin C 1 tab 11/09/16 10:00 Tab-A-Vit - PO DAILY [facility] Ondansetron HCl 4 mg 11/08/16 17:04 Zofran Injection IVPUSH 11/08/16 23:05 Q6H PRN NAUSEA AND/OR VOMITING Promethazine HCl 12.5 mg 11/08/16 17:04 Phenergan Injection - IVPUSH 11/08/16 23:05 Q6H PRN NAUSEA Tamsulosin HCl 0.4 mg 11/09/16 08:30 Flomax - PO DAILY@0830 [facility] ASSESSMENT/PLAN: 61 yo F with history of HIV, B/L Nephrolithiasis, CVA, who presented with L flank pain for 3 days. Admitted for Nephrolithiasis with ELISSA 1. Nephrolithiasis - Patient has history of B/L nephrolithiasis (w/ L hydronephrosis, L hydroureter , R staghorn calculi) - Patient to get a Laser Lithotripsy today - Patient is on Lactated Ringers 125ml/hr - Continue Tamsulosin 0.4mg PO QD 2. ELISSA - Trend Cr, currently 1.3, stable - Likely due to obstructive uropathy 3. History of HIV - Continue home HAART 4. History of Stroke - Continue ASA 81mg PO QD 5. FEN - Fluids - Patient on LR 125mL/hr - Electrolytes - F/u Cr post procedure - Nutrition - Regular Diet 6. DVT Prophylaxis - Heparin SQ 5,000 unites TID 7. Disposition - Possible discharge tomorrow if Cr is stable post procedure 8. Code Status - Patient is Full Code Visit type - Emergency Visit Emergency Visit: No - New Patient This patient is new to me today: No - Critical Care Critical Care patient: No - Discharge Referral Referred to [facility] Med P.C.: No
[2016-11-08] MEDS ORDERED: PT OWN MED DRAWER 7, Y5N ONE ×2 (20:00→20:13)
[2016-11-08] MEDS ORDERED: EFAVIRENZ 600 MG TABLET PO SCH (20:00)
[2016-11-08] MEDS ORDERED: EMTRICITABINE 200MG/TENOFOVIR 300MG PO SCH (20:00)
[2016-11-08] MEDS: morphine CARPU-JECT 2 MG/1 ML DISP.SYRIN IVPUSH PRN (21:15)
[2016-11-08] MEDS: SODIUM CHLORIDE 1,000 ML IV SCH (23:05)
[2016-11-09] MEDS: morphine CARPU-JECT 2 MG/1 ML DISP.SYRIN IVPUSH PRN (03:35)
[2016-11-09] MEDS: LACTATED RINGERS SOLUTION 1,000 ML IV SCH (05:59)
[2016-11-09] MEDS: HEPARIN NA (PORCINE) 5,000 UNITS/ML 1ML VIAL SQ SCH (05:59)
[2016-11-09 07:51] LABS: ANION GAP 8 (8-16); CALCIUM 8.5 mg/dL (8.5-10.1); CO2 26 mmol/L (21-32); GLUCOSE,RANDOM 116 mg/dL (74-106)
[2016-11-09 07:53] LABS: CREATININE 1.2 mg/dL (0.55-1.02)
[2016-11-09] MEDS ORDERED: TAMSULOSIN HCL 0.4 MG CAP.ER.24H (FP) PO SCH (08:30)
[2016-11-09] MEDS ORDERED: PT OWN MED DRAWER 7, Y5N ONE (08:33)
[2016-11-09] MEDS: GABAPENTIN 300 MG CAPSULE (FP) PO SCH (09:06)
--- NOTE | 2016-11-09 09:36 | PN ---
Progress Note, Physician Chief Complaint: Pt. pain controlled, no GA complaints. - Current Medication List Current Medications: Active Medications Acetaminophen (Tylenol -) 650 mg PO Q6H PRN PRN Reason: FEVER OR PAIN Aspirin (Ecotrin -) 81 mg PO DAILY [facility] Last Admin: 11/09/16 09:06 Dose: 81 mg Cyclobenzaprine HCl (Flexeril -) 10 mg PO HS PRN PRN Reason: MUSCLE SPASMS Efavirenz (Sustiva -) 600 mg PO DAILY@1999 [facility] Last Admin: 11/08/16 20:04 Dose: 600 mg Emtricitabine/Tenofovir (Truvada) 1 tab PO DAILY@1999 [facility] Last Admin: 11/08/16 20:04 Dose: 1 tab Fentanyl (Sublimaze Injection -) 50 mcg IVPUSH [id number] PRN PRN Reason: PAIN Stop: 11/11/16 17:05 Gabapentin (Neurontin -) 600 mg PO BID [facility] Last Admin: 11/09/16 09:06 Dose: 600 mg Heparin Sodium (Porcine) (Heparin -) 5,000 unit SQ TID [facility] Last Admin: 11/09/16 05:59 Dose: 5,000 unit Lactated Ringer's (Lactated Ringers Solution) 1,000 mls @ 125 mls/hr IV ASDIR [facility] Last Admin: 11/09/16 05:59 Dose: 125 mls/hr Morphine Sulfate (Morphine Injection -) 1 mg IVPUSH Q4H PRN PRN Reason: PAIN Last Admin: 11/09/16 03:35 Dose: 1 mg Multivitamins/Minerals/Vitamin C (Tab-A-Vit -) 1 tab PO DAILY [facility] Last Admin: 11/09/16 09:06 Dose: 1 tab Tamsulosin HCl (Flomax -) 0.4 mg PO DAILY@0830 [facility] Last Admin: 11/09/16 09:06 Dose: 0.4 mg - Objective Vital Signs: Vital Signs Temperature 97.5 F L 11/09/16 05:49 Pulse Rate 77 11/09/16 05:49 Respiratory Rate 18 11/09/16 05:49 Blood Pressure 156/78 11/09/16 05:49 O2 Sat by Pulse Oximetry (%) 96 11/08/16 21:00 Constitutional: Yes: Well Nourished, No Distress, Calm Musculoskeletal: Yes: WNL Neurological: Yes: WNL, Alert, Oriented Labs: CBC, BMP 11/07/16 06:00 11/09/16 06:00 INR, PTT INR 1.01 (0.82-1.09) 11/06/16 09:40 Assessment/Plan POD#1 s/p cystoscopy, bilateral uteroscopy, laser lithotripsy and stent under GA. Doing well. D/C from anesthesia care.
[2016-11-09] MEDS ORDERED: MULTIVITAMINS (DAILY MVI) TABLET (FP) PO SCH (10:00)
[2016-11-09] MEDS ORDERED: ASPIRIN COATED 81 MG TABLET.EC PO SCH (10:00)
--- NOTE | 2016-11-09 10:05 | PN ---
Progress Note (short form) - Note Progress Note: patient feels well. Much improved compared to pre op. OK to discharge. Follow up in two weeks in the office Problem List - Problems (1) Renal calculi Code(s): N20.0 - CALCULUS OF KIDNEY
[2016-11-09 10:22] VITALS: BP 142/93; TEMP 97.3
--- NOTE | 2016-11-09 10:51 | OP ---
DATE OF OPERATION: 11/08/2016 PREOPERATIVE DIAGNOSIS: Bilateral stones, left ureter, right kidney. Left hydronephrosis. SURGEON: Leon Busby MD ANESTHESIA: Anjum Tubbs MD, general anesthesia. FINDINGS: Multiple stones in the distal left ureter and stones in the right kidney. STENTS: A 6 x 26 double-J ureteral stents bilaterally. PREOPERATIVE INDICATIONS: The patient is a 61-year-old female who has bilateral stone disease. She has a large amount of stones in the distal left ureter with severe left hydronephrosis, and she has stones in the right kidney. DESCRIPTION OF PROCEDURE: Patient brought to the OR, placed on the table in supine position, given general anesthesia, IV antibiotics, and placed in the modified lithotomy position. The groins were prepped and draped sterilely. Cystoscopy was performed. The bladder was unremarkable. The left UO was visualized. A wire was passed up to the left kidney. A 10-Spanish dual-lumen catheter was used to dilate the left UO, and a semirigid ureteroscope was passed. Multiple large stones were seen impacted in the distal left ureter. Using holmium laser fiber, all these stones were broken up into small passable fragments. The rest of the ureter was examined, revealed no stones of significant size. A 6 x 26 double-J ureteral stent was placed with 1 loop in the kidney and 1 loop in the bladder. The right side was intubated with a wire and a 10-Spanish dual-lumen catheter. The second wire was placed in the left kidney, and over the wire a flexible ureteroscope was passed. Stones were seen in each of the calices. However, of note, what appeared on the CAT scan to be a large staghorn calculus was not visualized. However, there were stones seen in all calices. These stones were broken up with holmium laser fiber and the scope was removed. A 6 x 26 double-J ureteral stent was left in place. Retrograde pyelogram was performed as well. Bladder was emptied, patient was woken up. LEON BUSBY M.D. [id number]
--- NOTE | 2016-11-09 13:20 | DS ---
Physical Examination Vital Signs: Vital Signs Temperature 97.3 F L 11/09/16 08:00 Pulse Rate 86 11/09/16 08:00 Respiratory Rate 18 11/09/16 09:00 Blood Pressure 142/93 11/09/16 08:00 O2 Sat by Pulse Oximetry (%) 96 11/09/16 09:00 Findings/Remarks: denies any abd or back pain today .no N/V. has no fever or chills Physical exam : NAD, MMM, no teeth. CV: RRR, no MRG, no JVD Lungs : CATB ext : 1+ pitting edema on LE . ABd : soft, NT, no rebound tenderness or guarding .no CVA tenderness Labs: CBC, BMP 11/07/16 06:00 11/09/16 06:00 Discharge Summary Reason For Visit: HYDRONEPHROSIS WITH OBSTRUCTING CALCULUS Current Active Problems ELISSA (acute kidney injury) (Acute) Renal calculi (Acute) Hospital Course: 61 y/o lady with h/o HIV, nephrolithiasis, and CVA in 2004 who presented with L flank pain x 3 days. SHe has a known Staghorn calculus on R side and L obstructing stones with L hydroureter and hydrnephrosis from a previous ER visit . She was scheduled to get lithotripsy on 11/08 as out pt , but she never got her medical clearance on admission , she had a stable vital signs , abd and L CVA tenderness and clean urine with no signs of infection. she was admitted , placed on flomax, IVF and uro was consulted. Lithotripsy was done She had a cr of 1.1 which peaked at 1.3 , improved to 1.2 after cystoscopy and lithotripsy were done. SHe was advised to resume HCTZ in 3 day as after dc . today she has no pain or tenderness on exam, and her vitals are stable. Dispo: Home f/u Urology, PCP condition improved Time spent 30 min Condition: Improved - Instructions Diet, Activity, Other Instructions: - please follow with dr. Ansari in 2 weeks . - follow with your PCP in 1 week - resume your hydrochlorothiazide in 3-4 days . to give chance to your kidneys to recover - if you develop any pain in your abdomen or flanks , please report to your doctor . - follow the diet instruction given to you - you augusto blood work in 1 week. please fax to Dr. Casey Referrals: Zuleyka Casey MD [Primary Care Provider] - 1 Week Jarrett Busby MD [Staff Physician] - 2 Weeks Disposition: HOME - Home Medications Comprehensive Discharge Medication List: Ambulatory Orders Aspirin [Aspirin EC] 81 mg PO DAILY #30 tablet. 09/02/16 Cyclobenzaprine HCl [Flexeril 10 mg] 10 mg PO HS PRN #30 tablet 09/02/16 Efavirenz/Emtricitab/Tenofovir [Atripla Tablet -] 1 tab PO DAILY #30 tab Gabapentin [Neurontin] 600 mg PO BID #60 tablet 09/02/16 Guaifenesin Dm [Robitussin Dm -] 10 ml PO Q8H PRN #1 bottle 09/02/16 Multivitamins [Multivit ([facility] Formul[facility])] 1 tab PO DAILY #30 tab 09/02/16 Hydrochlorothiazide [Hctz -] 12.5 mg PO DAILY #30 cap 09/30/16 Ranitidine HCl [Zantac] 150 mg PO DAILY #30 tablet 10/06/16 Miscellaneous Medical Supply [Outpatient Order] 1 each ASDIR #1 misc This patient is new to me today: No Emergency Visit: Yes ED Registration Date: 11/06/16 Care time: The patient presented to the Emergency Department on the above date and was hospitalized for further evaluation of their emergent condition. Critical Care patient: No - Discharge Referral Referred to [facility] Med P.C.: No
[2016-11-09 14:00] VITALS: PULSE 73
== END 2016-11-09 14:41 | disposition home or self-care (01) | DRG 694 ==
LOC: JER 09:00 → JERBED 12:00 → J7W 13:33
PROVIDERS: ADMIT Internal Medicine; ATTEND Internal Medicine
PROC: 0T788DZ Dilation of Bilateral Ureters with Intraluminal Device, Via Natural or Artificial Opening Endoscopic (ICD-10-PCS; principal; 2016-11-08 12:00)
PROC: 0TF78ZZ Fragmentation in Left Ureter, Via Natural or Artificial Opening Endoscopic (ICD-10-PCS; 2016-11-08 12:00)
PROC: 0TF48ZZ Fragmentation in Left Kidney Pelvis, Via Natural or Artificial Opening Endoscopic (ICD-10-PCS; 2016-11-08 12:00)
PROC: BT1FYZZ Fluoroscopy of Left Kidney, Ureter and Bladder using Other Contrast (ICD-10-PCS; 2016-11-08 12:00)
DX: N13.2 Hydronephrosis with renal and ureteral calculous obstruction (principal); N17.9 Acute kidney failure, unspecified; Z21 Asymptomatic human immunodeficiency virus [HIV] infection status; R73.03 Prediabetes; Z86.73 Personal history of transient ischemic attack (TIA), and cerebral infarction without residual deficits; R19.7 Diarrhea, unspecified; Z87.891 Personal history of nicotine dependence; Z80.8 Family history of malignant neoplasm of other organs or systems; Z88.0 Allergy status to penicillin; G89.29 Other chronic pain
CPT/HCPCS: 36415; 71010-TC; 76000-TC; 80048; 80053; 81003; 81015; 85025; 85610; 86850; 86900; 86901; 87086; 93005; 93010; 93971-TC; 94760; 99283-25; J1644

== ENCOUNTER 2021-07-30 13:42 | Emergency (ER) | payer OTHER ==
[2021-07-30 13:53] VITALS: BP 126/70; PULSE 105; TEMP 97.3; BMI 41.1
[2021-07-30 21:10] LABS: BASO % 0.8 % (0-2.0); EOS % 5.1 % (0-4.5); HEMATOCRIT 38.9 % (32.4-45.2); HEMOGLOBIN 12.7 GM/dL (10.7-15.3); LYMPH % 26.4 % (8-40); MCH 28.5 pg (25.7-33.7); MCHC 32.6 g/dl (32.0-36.0); MEAN CELL VOLUME 87.4 fl (80-96); MEAN PLT VOLUME 7.2 fl (7.5-11.1); MONO % 8.6 % (3.8-10.2); NEUT % 59.1 % (42.8-82.8); PLATELET COUNT 233 10^3/uL (134-434); RBC 4.45 M/mm3 (3.60-5.2); RDW 15.6 % (11.6-15.6); WHITE BLOOD COUNT 3.9 K/mm3 (4.0-10.0)
[2021-07-30 21:14] LABS: INR 0.99 (0.83-1.09); PROTHROMBIN TIME (PATIENT) 11.4 SEC (9.7-13.0)
[2021-07-30 21:17] LABS: ACTIVATED PTT 30.5 SECONDS (25.2-36.5)
[2021-07-30 21:31] LABS: CALCIUM 9.8 mg/dL (8.5-10.1)
[2021-07-30 21:32] LABS: ALBUMIN 4.1 g/dl (3.4-5.0); BLOOD UREA NITROGEN 18.8 mg/dL (7-18)
[2021-07-30 21:35] LABS: CREATININE 1.1 mg/dL (0.55-1.3)
[2021-07-30 21:37] LABS: BILIRUBIN,TOTAL 0.4 mg/dL (0.2-1); TOT PROT 7.2 g/dl (6.4-8.2)
[2021-07-30 22:38] LABS: EPI CELLS 28 /uL (0-25.1); HYALINE CASTS 1 /uL (0-3.1); URINE APPEARANCE CLOUDY; URINE BACTERIA 1369 /uL (0-1359); URINE BILIRUBIN NEGATIVE (NEGATIVE); URINE COLOR YELLOW; URINE GLUCOSE (UA) NEGATIVE (NEGATIVE); URINE KETONE NEGATIVE (NEGATIVE); URINE LEUK ESTERASE 3+ (NEGATIVE); URINE NITRITE NEGATIVE (NEGATIVE); URINE PROTEIN TRACE (NEGATIVE); URINE RBC 41 /uL (0-23.9); URINE WBC 3837 /uL (0-25.8)
== END 2021-07-31 00:16 | disposition left against medical advice (07) ==
LOC: JER 13:42
DX: R42 Dizziness and giddiness (principal); R22.42 Localized swelling, mass and lump, left lower limb; R13.10 Dysphagia, unspecified
CPT/HCPCS: 36415; 70450-TC; 71046-TC-FY; 80053; 81003; 84484; 85025; 85610; 85730; 86850; 86900; 86901; 87086; 93005; 93010; 93971-TC; 99285-25

== ENCOUNTER 2022-12-14 05:30 | Day surgery (SDC) | payer OTHER ==
[2022-12-14 07:33] VITALS: TEMP 98; BMI 38.5
[2022-12-14 09:42] VITALS: BP 133/63; PULSE 75; RESP 14
[2022-12-14 10:48] LABS: POTASSIUM 3.9 mmol/L (3.5-5.1)
[2022-12-14 10:53] LABS: BLOOD UREA NITROGEN 18.5 mg/dL (7-18); MAGNESIUM 1.9 mg/dL (1.8-2.4)
[2022-12-14 10:56] LABS: CREATININE 1.3 mg/dL (0.55-1.3)
== END 2022-12-14 10:33 | disposition home or self-care (01) ==
LOC: JASU-ENDO 05:30
PROVIDERS: ATTEND Internal Medicine Gastroenterology
PROC: 0DBN8ZX Excision of Sigmoid Colon, Via Natural or Artificial Opening Endoscopic, Diagnostic (ICD-10-PCS; 2022-12-14)
PROC: 3E0H8GC Introduction of Other Therapeutic Substance into Lower GI, Via Natural or Artificial Opening Endoscopic (ICD-10-PCS; 2022-12-14)
PROC: 0DBM8ZX Excision of Descending Colon, Via Natural or Artificial Opening Endoscopic, Diagnostic (ICD-10-PCS; principal; 2022-12-14 08:00)
DX: Z12.11 Encounter for screening for malignant neoplasm of colon (principal); K57.30 Diverticulosis of large intestine without perforation or abscess without bleeding; D12.4 Benign neoplasm of descending colon; K64.8 Other hemorrhoids
CPT/HCPCS: 36415; 80048; 82962; 83735; 88305-TC; 88342-TC

== ENCOUNTER 2023-02-24 05:07 | Day surgery (SDC) | payer OTHER ==
[2023-02-17 12:04] VITALS: BMI 39.4
[2023-02-24 10:16] VITALS: RESP 18
[2023-02-24 10:23] VITALS: BP 119/66; PULSE 72; TEMP 100
== END 2023-02-24 09:48 | disposition home or self-care (01) ==
LOC: JASU-ENDO 05:07
PROVIDERS: ATTEND Internal Medicine Gastroenterology
PROC: 0DJD8ZZ Inspection of Lower Intestinal Tract, Via Natural or Artificial Opening Endoscopic (ICD-10-PCS; principal; 2023-02-24 08:45)
DX: K57.30 Diverticulosis of large intestine without perforation or abscess without bleeding (principal); K64.8 Other hemorrhoids; Z86.010 Personal history of colon polyps
CPT/HCPCS: 82962